=== PATIENT | female | born 1970 | race Caucasian/White ===

== ENCOUNTER 2022-06-16 07:23 | Emergency (ER) | payer SELFPAY ==
[~2022-06-16] VITALS: Ht 172.7 cm; Wt 61.2 kg
[2022-06-16 07:36] VITALS: BP 131/80
--- NOTE | 2022-06-16 07:43 | NUR ---
PT AMB TO BED 11.
[2022-06-16] MEDS ORDERED: LIDOCAINE 1% 500 MG/ 50 ML VIAL INJ ONE (08:15)
--- NOTE | 2022-06-16 08:32 | NUR ---
ASSUMED PATIENT CARE, NURSING ASSESSMENT COMPLETED.
[2022-06-16] MEDS ORDERED: LIDOCAINE MPF 1% 5 ML ONE (08:47)
--- NOTE | 2022-06-16 09:15 | NUR ---
NON ADHERENT DRESSING APPLIED TO POST LAC REPAIR SITE.
[2022-06-16 09:23] VITALS: BP 127/55
--- NOTE | 2022-06-16 09:24 | NUR ---
Patient discharged with v/s stable. Written and verbal after care instructions given and explained. Patient verbalized understanding. Ambulatory with steady gait. All questions addressed prior to discharge. Advised to follow up with PMD.
== END 2022-06-16 09:23 | disposition home or self-care (01) ==
LOC: MED 07:23
DX: S41.111A Laceration without foreign body of right upper arm, initial encounter (principal); Z79.899 Other long term (current) drug therapy; W22.03XA Walked into furniture, initial encounter; Y93.89 Activity, other specified; Y92.89 Other specified places as the place of occurrence of the external cause; Y99.8 Other external cause status
CPT/HCPCS: 12001; 99282; J2001